=== PATIENT | male | born 1950 | race Caucasian/White ===

== ENCOUNTER → 2016-12-31 | Outpatient (CLI) | payer OTHER | LOC: EXRD 09:45 | DX: R07.89 Other chest pain (principal); Z95.1 Presence of aortocoronary bypass graft; Z88.0 Allergy status to penicillin | CPT/HCPCS: 71120 ==

== ENCOUNTER → 2017-01-19 | Outpatient (CLI) | payer MEDICARE, OTHER | LOC: CT 09:00 | DX: R91.8 Other nonspecific abnormal finding of lung field (principal); Z88.0 Allergy status to penicillin | CPT/HCPCS: 71260; J7050; Q9962 ==

== ENCOUNTER 2017-02-08 11:00 | Emergency (ER) | payer MEDICARE, OTHER ==
[2017-02-08 11:37] LABS: HEMOGLOBIN 14.8 gm/dl (14.0-17.5); RED BLOOD COUNT 5.08 M/UL (4.20-5.50); WHITE BLOOD COUNT 5.5 K/UL (4.5-11.0)
[2017-02-08 11:57] LABS: BUN/CREATININE RATIO 14 (0-10)
== END 2017-02-08 15:44 | disposition home or self-care (01) ==
LOC: ER1 11:00
PROVIDERS: Emergency Medicine
DX: J20.9 Acute bronchitis, unspecified (principal); E11.65 Type 2 diabetes mellitus with hyperglycemia; Z95.1 Presence of aortocoronary bypass graft; Z88.0 Allergy status to penicillin
CPT/HCPCS: 36415; 71020; 80053; 82550; 82553; 82962; 83874; 84484; 85025; 85379; 93005; 94664; 96360; 99285

== ENCOUNTER → 2017-02-17 | Outpatient (CLI) | payer MEDICARE, OTHER | LOC: HEART 5 02-08 08:30 | DX: I20.9 Angina pectoris, unspecified (principal); R06.02 Shortness of breath | CPT/HCPCS: 78452; A9502; J2785 ==

== ENCOUNTER 2017-02-20 09:08 | Emergency (ER) | payer MEDICARE, OTHER | END 2017-02-20 11:40 | disposition home or self-care (01) | LOC: ER1 09:08 | DX: L03.114 Cellulitis of left upper limb (principal); S50.812A Abrasion of left forearm, initial encounter; E11.628 Type 2 diabetes mellitus with other skin complications; Z88.0 Allergy status to penicillin; W20.8XXA Other cause of strike by thrown, projected or falling object, initial encounter; Y92.009 Unspecified place in unspecified non-institutional (private) residence as the place of occurrence of the external cause | CPT/HCPCS: 73090; 99283 ==

== ENCOUNTER → 2017-02-25 | Outpatient (CLI) | payer MEDICARE, OTHER | LOC: HEART 5 08:21 | DX: R06.02 Shortness of breath (principal); I20.9 Angina pectoris, unspecified; I07.1 Rheumatic tricuspid insufficiency; I10 Essential (primary) hypertension | CPT/HCPCS: 93306 ==

== ENCOUNTER → 2017-03-22 | Outpatient (CLI) | payer MEDICARE, OTHER | LOC: EXRD 09:14 | DX: M79.643 Pain in unspecified hand (principal); M19.041 Primary osteoarthritis, right hand | CPT/HCPCS: 73130 ==

== ENCOUNTER 2021-02-04 13:37 | Emergency (ER) | payer MEDICARE, OTHER ==
[~2021-02-04 13:37] MED LIST: TESSALON PERLE100 MG PO; ZITHROMAX250 MG PO
[2021-02-04] MEDS ORDERED: CYCLOBENZAPRINE5 MG PO (15:58)
[2021-02-04] MEDS ORDERED: TORADOL 10 MG T10 MG PO (15:58)
== END 2021-02-04 16:06 | disposition home or self-care (01) ==
LOC: ER1 13:37
DX: S20.211A Contusion of right front wall of thorax, initial encounter (principal); E11.9 Type 2 diabetes mellitus without complications; I10 Essential (primary) hypertension; Z88.0 Allergy status to penicillin; V80.010A Animal-rider injured by fall from or being thrown from horse in noncollision accident, initial encounter; Y92.009 Unspecified place in unspecified non-institutional (private) residence as the place of occurrence of the external cause
CPT/HCPCS: 71111; 99283

== ENCOUNTER 2021-02-24 08:31 | Emergency (ER) | payer MEDICARE, OTHER ==
[~2021-02-24 08:31] MED LIST changes: +CYCLOBENZAPRINE5 MG PO; +TORADOL 10 MG T10 MG PO
[2021-02-24 12:04] LABS: HEMOGLOBIN 15.6 gm/dl (14.0-17.5); RED BLOOD COUNT 5.45 M/UL (4.20-5.50); WHITE BLOOD COUNT 6.5 K/UL (4.5-11.0)
[2021-02-24 12:15] LABS: BUN/CREATININE RATIO 20 (0-10)
[2021-02-24] MEDS ORDERED: Voltaren Gel 1 % TOP (12:43)
== END 2021-02-24 13:06 | disposition home or self-care (01) ==
LOC: ER1 08:31
PROVIDERS: Physician Assistant Medical
DX: M79.651 Pain in right thigh (principal); E11.9 Type 2 diabetes mellitus without complications; I10 Essential (primary) hypertension; Z86.718 Personal history of other venous thrombosis and embolism; Z79.02 Long term (current) use of antithrombotics/antiplatelets
CPT/HCPCS: 80053; 85025; 85610; 93971; 99284

== ENCOUNTER 2021-10-19 10:39 | Emergency (ER) | payer MEDICARE, OTHER ==
[~2021-10-19 10:39] MED LIST changes: +Voltaren Gel 1 % TOP
== END 2021-10-19 11:00 | disposition left against medical advice (07) ==
LOC: ER1 10:39
DX: Z53.21 Procedure and treatment not carried out due to patient leaving prior to being seen by health care provider (principal)

== ENCOUNTER 2021-11-28 11:53 | Emergency (ER) | payer MEDICARE, OTHER ==
[2021-11-28 14:08] LABS: HEMOGLOBIN 16.4 gm/dl (14.0-17.5); RED BLOOD COUNT 5.49 M/UL (4.20-5.50); WHITE BLOOD COUNT 10.3 K/UL (4.5-11.0)
[2021-11-28 14:49] LABS: BUN/CREATININE RATIO 40 (0-10)
== END 2021-11-28 16:00 | disposition home or self-care (01) ==
LOC: ER1 11:53
PROVIDERS: Family Medicine
DX: U07.1 COVID-19 (principal); E11.65 Type 2 diabetes mellitus with hyperglycemia; Z95.1 Presence of aortocoronary bypass graft; Z88.0 Allergy status to penicillin; Z79.4 Long term (current) use of insulin; Z87.891 Personal history of nicotine dependence
CPT/HCPCS: 71045; 80048; 82550; 82553; 83605; 83874; 83880; 84484; 85025; 86140; 93005; 99285; U0002

== ENCOUNTER 2021-11-29 16:31 | Inpatient (IN) | payer MEDICARE, OTHER, MEDICAID ==
[~2021-11-29] VITALS: Ht 177.8 cm; Wt 72.6 kg
[2021-11-29 18:53] LABS: HEMOGLOBIN 15.7 gm/dl (14.0-17.5); RED BLOOD COUNT 5.27 M/UL (4.20-5.50)
[2021-11-29 19:21] LABS: WHITE BLOOD COUNT 6.8 K/UL (4.5-11.0)
[2021-11-29 19:39] LABS: BUN/CREATININE RATIO 38 (0-10)
[2021-11-30] MEDS ORDERED: LIPITOR10 MG PO (11:59)
[2021-11-30] MEDS ORDERED: JARDIANCE10 MG PO (11:59)
[2021-11-30] MEDS ORDERED: LEVEMIR FL100 UNIT/1 SC (12:00)
[2021-11-30] MEDS ORDERED: COLACE100 MG PO (12:01)
[2021-11-30] MEDS ORDERED: ELIQUIS5 MG PO (12:02)
[2021-11-30] MEDS ORDERED: PROZAC20 MG PO (12:03)
[2021-12-01 03:47] LABS: HEMOGLOBIN 14.9 gm/dl (14.0-17.5); RED BLOOD COUNT 5.3 M/UL (4.20-5.50)
[2021-12-01 03:57] LABS: WHITE BLOOD COUNT 2.5 K/UL (4.5-11.0)
[2021-12-01 04:32] LABS: BUN/CREATININE RATIO 57 (0-10)
--- NOTE | 2021-12-01 15:45 | NUR ---
Patient has complaints of chest pain, MD notifed and orders given. Will continue to monitor.
[2021-12-02 03:53] LABS: HEMOGLOBIN 14.4 gm/dl (14.0-17.5); WHITE BLOOD COUNT 2.2 K/UL (4.5-11.0)
[2021-12-02 05:01] LABS: BUN/CREATININE RATIO 58 (0-10)
--- NOTE | 2021-12-02 10:21 | NUR ---
Patient was on 6 liters of oxygen and it was dropping to 84, patient is now on 15 liters high flow and sating at 86-88%. Dr. Stephens notified that patient is still desating on the 15 liters high flow, MD ordered that patient be placed on Airvo. Will continue to monitor.
[2021-12-03 07:28] LABS: HEMOGLOBIN 14.7 gm/dl (14.0-17.5); RED BLOOD COUNT 5.15 M/UL (4.20-5.50); WHITE BLOOD COUNT 1.9 K/UL (4.5-11.0)
[2021-12-03 07:29] LABS: BUN/CREATININE RATIO 52 (0-10)
[2021-12-04 07:05] LABS: HEMOGLOBIN 15.2 gm/dl (14.0-17.5); RED BLOOD COUNT 5.18 M/UL (4.20-5.50)
[2021-12-04 07:36] LABS: BUN/CREATININE RATIO 35 (0-10)
[2021-12-05 04:31] LABS: HEMOGLOBIN 14.1 gm/dl (14.0-17.5); RED BLOOD COUNT 4.86 M/UL (4.20-5.50); WHITE BLOOD COUNT 2.8 K/UL (4.5-11.0)
[2021-12-05 04:58] LABS: BUN/CREATININE RATIO 38 (0-10)
[2021-12-06 03:26] LABS: HEMOGLOBIN 13.5 gm/dl (14.0-17.5); RED BLOOD COUNT 4.63 M/UL (4.20-5.50)
[2021-12-06 03:35] LABS: WHITE BLOOD COUNT 3.9 K/UL (4.5-11.0)
[2021-12-06 03:55] LABS: BUN/CREATININE RATIO 27 (0-10)
[2021-12-07 03:21] LABS: HEMOGLOBIN 14.5 gm/dl (14.0-17.5); RED BLOOD COUNT 5.03 M/UL (4.20-5.50); WHITE BLOOD COUNT 4.8 K/UL (4.5-11.0)
[2021-12-07 03:47] LABS: BUN/CREATININE RATIO 29 (0-10)
--- NOTE | 2021-12-07 21:59 | NUR ---
2158- CHECKED WITH PATIENT TO SEE IF HE WANTED KEENAN CRESPO AT [phone] TO BE GIVEN INFORMATION ABOUT HIS MEDICAL CONDITION, HE STATED, "YES THAT IS FINE, SHE IS MY DAUGHTER."
[2021-12-08 02:57] LABS: HEMOGLOBIN 13.8 gm/dl (14.0-17.5); RED BLOOD COUNT 4.78 M/UL (4.20-5.50); WHITE BLOOD COUNT 4.9 K/UL (4.5-11.0)
[2021-12-08 03:25] LABS: BUN/CREATININE RATIO 26 (0-10)
--- NOTE | 2021-12-08 15:45 | NUR ---
PTS PULSE OX IS 81% ROOM AIR ON 5 LITERS HI-FLOW
[2021-12-09 08:04] LABS: BUN/CREATININE RATIO 27 (0-10)
[2021-12-09 08:15] LABS: HEMOGLOBIN 13.6 gm/dl (14.0-17.5); RED BLOOD COUNT 4.73 M/UL (4.20-5.50); WHITE BLOOD COUNT 5.2 K/UL (4.5-11.0)
[2021-12-09] MEDS ORDERED: DECADRON6 MG PO (10:52)
[2021-12-09] MEDS ORDERED: ELIQUIS5 MG PO (10:52)
[2021-12-09] MEDS ORDERED: PROAIR HFA8.5 GM INH (11:06)
--- NOTE | 2021-12-09 13:33 | NUR ---
DR. NAZARIO STATES PT CAN BE SEEN BY [facility] ON TUESDAY OR TUESDAY OF NEXT WEEK 12-14-21 OR 11-25-21. THIS IS DUE TO [facility] NOT BEING ABLE TO COME SEE HIM SOONER.
== END 2021-12-09 17:00 | disposition home health service (06) | DRG 177 ==
LOC: ER1 16:31 → CDU 23:21 → M/S 23:21
PROVIDERS: Internal Medicine; Physician Assistant; ADMIT Emergency Medicine
PROC: 8E0ZXY6 Isolation (ICD-10-PCS; principal; 2021-11-29)
PROC: XW033E5 Introduction of Remdesivir Anti-infective into Peripheral Vein, Percutaneous Approach, New Technology Group 5 (ICD-10-PCS; 2021-11-29)
PROC: 3E0333Z Introduction of Anti-inflammatory into Peripheral Vein, Percutaneous Approach (ICD-10-PCS; 2021-11-29)
PROC: B24BZZZ Ultrasonography of Heart with Aorta (ICD-10-PCS; 2021-12-01)
PROC: 5A0955A Assistance with Respiratory Ventilation, Greater than 96 Consecutive Hours, High Flow/Velocity Cannula (ICD-10-PCS; 2021-12-02)
DX: U07.1 COVID-19 (principal); J96.01 Acute respiratory failure with hypoxia; J12.82 Pneumonia due to coronavirus disease 2019; I26.93 Single subsegmental thrombotic pulmonary embolism without acute cor pulmonale; J15.9 Unspecified bacterial pneumonia; Z66 Do not resuscitate; E78.5 Hyperlipidemia, unspecified; I10 Essential (primary) hypertension; I08.1 Rheumatic disorders of both mitral and tricuspid valves; I25.10 Atherosclerotic heart disease of native coronary artery without angina pectoris; E11.9 Type 2 diabetes mellitus without complications; R53.81 Other malaise; W18.30XA Fall on same level, unspecified, initial encounter; Z99.81 Dependence on supplemental oxygen; Y92.091 Bathroom in other non-institutional residence as the place of occurrence of the external cause; Z95.1 Presence of aortocoronary bypass graft; Z91.81 History of falling; Z79.4 Long term (current) use of insulin; Z83.3 Family history of diabetes mellitus; Z80.9 Family history of malignant neoplasm, unspecified; Z88.0 Allergy status to penicillin
CPT/HCPCS: ECHO; 36415; 36600; 70450; 71045; 72125; 80048; 80053; 82550; 82553; 82803; 82962; 83036; 83605; 83735; 83874; 83880; 84484; 85025; 85027; 85610; 85730; 86140; 93005; 93306; 93970; 94640; 94664; 94760; 96372; 96374; 96375; 97110-GP-CQ; 97116; 97116-GP-CQ; 97162; 97530; 99285; J0248; J1100; J1650; J1956; J2405; J7030; U0002

== ENCOUNTER 2021-12-11 12:11 | Emergency (ER) | payer MEDICARE, OTHER ==
[~2021-12-11 12:11] MED LIST changes: +COLACE100 MG PO; +DECADRON6 MG PO; +ELIQUIS5 MG PO; +JARDIANCE10 MG PO; +LEVEMIR FL100 UNIT/1 SC; +LIPITOR10 MG PO; +PROAIR HFA8.5 GM INH; +PROZAC20 MG PO
[2021-12-11 12:43] LABS: RED BLOOD COUNT 4.45 M/UL (4.20-5.50); WHITE BLOOD COUNT 6.3 K/UL (4.5-11.0)
[2021-12-11 13:22] LABS: BUN/CREATININE RATIO 37 (0-10)
== END 2021-12-11 18:25 | disposition short-term general hospital (02) ==
LOC: ER1 12:11
PROVIDERS: Emergency Medicine
DX: U07.1 COVID-19 (principal); J96.91 Respiratory failure, unspecified with hypoxia
CPT/HCPCS: 0240U; 36600; 70450; 70496; 70498; 70551; 71045; 80053; 82550; 82553; 82803; 83874; 84484; 85025; 93005; 94660; 94760; 99285; Q9967

== ENCOUNTER 2022-04-06 02:13 | Emergency (ER) | payer MEDICARE, OTHER ==
[2022-04-06 03:17] LABS: HEMOGLOBIN 14.7 gm/dl (14.0-17.5); RED BLOOD COUNT 5.15 M/UL (4.20-5.50); WHITE BLOOD COUNT 6.8 K/UL (4.5-11.0)
[2022-04-06 03:44] LABS: BUN/CREATININE RATIO 32 (0-10)
== END 2022-04-06 06:15 | disposition home or self-care (01) ==
LOC: ER1 02:13
PROVIDERS: Student in an Organized Health Care Education/Training Program
DX: R33.9 Retention of urine, unspecified (principal); R31.0 Gross hematuria; I51.9 Heart disease, unspecified; E11.9 Type 2 diabetes mellitus without complications; Z86.73 Personal history of transient ischemic attack (TIA), and cerebral infarction without residual deficits; Z86.718 Personal history of other venous thrombosis and embolism; Z79.01 Long term (current) use of anticoagulants; Z88.0 Allergy status to penicillin
CPT/HCPCS: 51702; 80053; 81001; 85025; 85610; 85730; 99283